=== PATIENT | male | born 1990 | race Caucasian/White ===

== ENCOUNTER 2022-01-26 01:11 | Outpatient (CLI) | payer BC, SELFPAY ==
--- NOTE | 2022-01-26 06:45 | DI.RAD_ITS ---
Exam(s) XR HAND LT COMPLETE EXAM: XR HAND LT COMPLETE CLINICAL HISTORY: Pain base of thumb,exhauster,lt hand pain,m79.642,m79.646. TECHNIQUE: 2D digital imaging was performed. COMPARISON: None FINDINGS: No evidence of fracture or dislocation. No osseous lesions nor erosions. No radiopaque foreign body . Bone density normal. IMPRESSION: No significant radiographic findings. DATA REPOSITORY: RADIATION DOSE DELIVERED:
== END 2022-01-26 01:31 ==
PROVIDERS: PCP Nurse Practitioner; Visit Provider Nurse Practitioner
DX: M79.642 Pain in left hand (principal); M79.645 Pain in left finger(s)
CPT/HCPCS: 73130

== ENCOUNTER 2022-03-31 13:22 | Outpatient (REF) | payer BC, SELFPAY | END 2022-03-31 13:23 | disposition home or self-care (01) | LOC: LBN 13:22 | PROVIDERS: PCP Nurse Practitioner; Visit Provider Physician Assistant | DX: J02.9 Acute pharyngitis, unspecified (principal) | CPT/HCPCS: 87070 ==

== ENCOUNTER 2022-09-23 10:26 | Outpatient (CLI) | payer BC, SELFPAY ==
--- NOTE | 2022-09-23 11:00 | DI.RAD_ITS ---
Exam(s) XR CHEST 2V PA LATERAL EXAM: XR CHEST 2V PA LATERAL CLINICAL HISTORY: intermittent fever, cough TECHNIQUE: 2D digital imaging was performed. COMPARISON: No exams were available for comparison FINDINGS: The heart is not enlarged. The lungs are clear and well expanded. No pleural effusion seen. Mediastin al contours appear intact. IMPRESSION: Normal chest. RADIATION DOSE DELIVERED: Total DLP
[2022-09-23 11:11] LABS: Abs Immature Grans 0.02 10^3/uL (0.0-0.06); Absolute Basophil Count 0.03 10^3/uL (0.0-0.2); Absolute Eosinophil Count 0.09 10^3/uL (0.0-0.7); Absolute Lymphocyte Count 1.98 10^3/uL (1.2-3.4); Absolute Monocyte Count 0.55 10^3/uL (0.1-0.8); Absolute Neutrophil Count 4.83 10^3/uL (1.2-6.7); Basophils % 0.4; Eosinophils % 1.2; HCT 44.8 % (40.0-50.0); HGB 15.5 g/dL (13.5-17.5); Immature Grans % 0.3; Lymphocytes % 26.4; MCH 32.2 pg (27.0-33.0); MCHC 34.6 % (32.0-36.0); MCV 93 fL (80-95); MPV 8.6 fL (8.0-11.0); Monocytes % 7.3; Neutrophils % 64.4; Platelet Count 262 10^3/uL (130-400); RBC 4.82 10^6/uL (4.36-5.78); RDW 11.7 % (11.8-14.1); RDW-SD 40.4 fL
[2022-09-23 11:13] LABS: Bilirubin Negative (Negative); Blood Negative (Negative); Clarity Clear (Clear); Glucose Negative (Negative); Ketones Negative (Negative); Leukocyte Esterase Negative (Negative); Nitrite Negative (Negative); Urobilinogen 0.2 EU/dL (Up TO 0.2)
[2022-09-23 11:21] LABS: ESR < 1 mm/hr (0-15)
[2022-09-23 11:42] LABS: ALT 25 U/L (16-63); AST 18 U/L (15-37); Albumin 4.1 g/dL (3.4-5.0); Alkaline Phosphatase 79 U/L (46-116); Anion Gap 8.1 mmol/L (3-11); BUN 10 mg/dL (7-18); Bilirubin, Total 0.4 mg/dL (0.2-1.0); CO2 28.9 mmol/L (21.0-32.0); CREATININE 0.9 mg/dL (0.70-1.30); Calcium 8.7 mg/dL (8.5-10.1); Chloride 104 mmol/L (98-107); Estimated GFR 115.65 (mL/min/1.73m2); Glucose 108 mg/dL (74-106); Potassium 3.9 mmol/L (3.5-5.1); Sodium 141 mmol/L (136-145); Total Protein 7.5 g/dL (6.4-8.2)
[2022-09-24 20:39] LABS: Rheumatoid Factor <8.6 IU/mL (<12.0)
[2022-09-27 10:29] LABS: HIV-1/2 Ag & Ab Screen Negative (Negative)
[2022-09-27 10:32] LABS: Hepatitis C Ab w Rflx HCV PCR Negative (Negative)
[2022-09-27 14:20] LABS: ANA Interpretation Negative (Negative)
[2022-09-27 15:03] LABS: TB Interpretation Negative (Negative); TB2 Ag minus Nil 0.02 IU/mL
== END 2022-09-23 10:27 | disposition home or self-care (01) ==
LOC: LBO 10:29
PROVIDERS: PCP Nurse Practitioner; Visit Provider Nurse Practitioner
DX: R05.9 Cough, unspecified (principal); R30.0 Dysuria; R42 Dizziness and giddiness; R50.9 Fever, unspecified
CPT/HCPCS: 36415; 80053; 85652; 86803; 87389; 71046; 81003; 85025; 86038; 86431; 86480; 87086

== ENCOUNTER 2022-10-05 09:14 | Outpatient (CLI) | payer BC, SELFPAY ==
--- NOTE | 2022-10-05 09:00 | RT.EKG_ITS ---
APPROVED REPORT Exam: Resting ECG Reason for Exam: f/u wpw Patient Location: O HR:86 bpm ECG Measurements Heart Rate 86 AXIS MS 95 P 27 QRSd 120 QRS 77 QT 360 T 57 QTc 431 Conclusion Sinus rhythm...normal P axis, V-rate 50- 99 Short MS interval...MS <110mS IVCD, consider atypical RBBB...QRSd>120mS, terminal axis(90,270)
== END 2022-10-05 09:15 | disposition home or self-care (01) ==
LOC: DI.KIM 09:15
PROVIDERS: PCP Nurse Practitioner; Visit Provider Nurse Practitioner
DX: Z86.79 Personal history of other diseases of the circulatory system (principal); R94.31 Abnormal electrocardiogram [ECG] [EKG]
CPT/HCPCS: 93010

== ENCOUNTER 2022-10-19 04:03 | Outpatient (CLI) | payer BC, SELFPAY ==
[2022-10-19 08:36] LABS: Calculated LDL 87 mg/dL (<100); Cholesterol 158 mg/dL (<200); HDL Cholesterol 54 mg/dL (40-60); Triglyceride 89 mg/dL (<150)
== END 2022-10-19 04:04 | disposition home or self-care (01) ==
LOC: LBO 04:03
PROVIDERS: PCP Nurse Practitioner; Visit Provider Nurse Practitioner
DX: Z00.00 Encounter for general adult medical examination without abnormal findings (principal); Z13.220 Encounter for screening for lipoid disorders
CPT/HCPCS: 36415; 80061

== ENCOUNTER 2024-07-12 12:20 | Outpatient (CLI) | payer BC, SELFPAY ==
[2024-07-12 12:15] LABS: Abs Immature Grans 0.01 10^3/uL (0.0-0.06); Absolute Basophil Count 0.03 10^3/uL (0.0-0.2); Absolute Eosinophil Count 0.06 10^3/uL (0.0-0.7); Absolute Monocyte Count 0.52 10^3/uL (0.1-0.8); Absolute Neutrophil Count 3.58 10^3/uL (1.2-6.7); Basophils % 0.4 %; Eosinophils % 0.9 %; HCT 46.2 % (40.0-50.0); HGB 16.4 g/dL (13.5-17.5); Immature Grans % 0.1 %; Lymphocytes % 37.3 %; MCH 31.8 pg (27.0-33.0); MCHC 35.5 % (32.0-36.0); MCV 90 fL (80-95); MPV 8.8 fL (8.0-11.0); Monocytes % 7.8 %; Neutrophils % 53.5 %; Platelet Count 244 10^3/uL (130-400); RBC 5.16 10^6/uL (4.36-5.78); RDW 11.6 % (11.8-14.1)
[2024-07-12 12:55] LABS: Ferritin 81 ng/mL (26-388)
[2024-07-12 13:02] LABS: C-Reactive Protein < 0.50 mg/dL (<or=0.5)
== END 2024-07-12 12:21 | disposition home or self-care (01) ==
LOC: LBO 12:22
PROVIDERS: PCP Nurse Practitioner; Visit Provider Surgery
DX: I45.6 Pre-excitation syndrome (principal); E78.1 Pure hyperglyceridemia; D68.51 Activated protein C resistance; I82.409 Acute embolism and thrombosis of unspecified deep veins of unspecified lower extremity; I26.99 Other pulmonary embolism without acute cor pulmonale; K62.5 Hemorrhage of anus and rectum
CPT/HCPCS: 36415; 82728; 85025; 86140

== ENCOUNTER 2024-11-26 04:06 | Outpatient (CLI) | payer BC, SELFPAY ==
[2024-11-26 09:01] LABS: ALT 24 U/L (16-63); AST 16 U/L (15-37); Alkaline Phosphatase 102 U/L (46-116); BUN 11 mg/dL (7-18); Bilirubin, Total 0.45 mg/dL (0.2-1.0); CREATININE 1.2 mg/dL (0.70-1.30); Calcium 9.1 mg/dL (8.5-10.1); Calculated LDL 88 mg/dL (<100); Chloride 107 mmol/L (98-107); Cholesterol 166 mg/dL (<200); Estimated GFR 80.88 (mL/min/1.73m2); Glucose 95 mg/dL (74-106); HDL Cholesterol 60 mg/dL (40-60); Potassium 3.9 mmol/L (3.5-5.1); Sodium 143 mmol/L (136-145); Total Protein 7.2 g/dL (6.4-8.2); Triglyceride 94 mg/dL (<150)
== END 2024-11-26 04:07 | disposition home or self-care (01) ==
LOC: LBO 04:07
PROVIDERS: PCP Nurse Practitioner; Referring Provider Nurse Practitioner; Visit Provider Nurse Practitioner
DX: Z13.220 Encounter for screening for lipoid disorders (principal)
CPT/HCPCS: 36415; 80053; 80061